=== PATIENT | male | born 1945 | race Caucasian/White ===

== ENCOUNTER 2021-06-23 18:29 | Emergency (ER) | payer OTHER ==
[~2021-06-23] VITALS: Ht 167.6 cm; Wt 64.4 kg
[2021-06-23 18:47] VITALS: BP_SYST 124
--- NOTE | 2021-06-23 19:00 | NUR ---
Patient triaged and placed in waiting room. VSS and patient appears in no acute distress at this time. Accompanied by daughter , awaiting available bed, and MD notified of need for MSE.
--- NOTE | 2021-06-23 19:06 | NUR ---
Report given to Dr Osborn
--- NOTE | 2021-06-23 19:15 | NUR ---
Patient in waiting room with daughter, alert, awake, oriented x 4. Patient breathing easy not in any distress. Patient denies pain at this time. Patient moves all extremities. Patient comfortably resting in the waiting room. Awaiting results of lab tests and diagnostics.
[2021-06-23 19:50] LABS: BASOPHILS # (AUTO) 0.2 K/uL (0.0-0.2); BASOPHILS % (AUTO) 3.3 % (0.0-2.0); EOSINOPHILS % (AUTO) 0.2 % (0.0-4.0); HEMATOCRIT 30.9 % (36-54); HEMOGLOBIN 10.3 g/dL (14.0-18.0); LYMPHOCYTES # (AUTO) 1.2 K/uL (1.0-5.5); LYMPHOCYTES % (AUTO) 17.5 % (20.5-51.5); MEAN CORPUSCULAR HEMOGLOBIN 28 pg (27-31); MEAN CORPUSCULAR HGB CONC 33 % (32-36); MEAN CORPUSCULAR VOLUME 85 fL (79.0-98.0); MONOCYTES # (AUTO) 1.2 K/uL (0.0-1.0); MONOCYTES % (AUTO) 17.6 % (1.7-9.3); NEUTROPHILS # (AUTO) 4.1 K/uL (1.8-7.7); NEUTROPHILS % (AUTO) 61.4 % (40.0-70.0); PLATELET COUNT (AUTO) 125 K/uL (130-430); RED BLOOD CELL COUNT(AUTO) 3.63 MIL/uL (4.2-6.2); RED CELL DISTRIBUTION WIDTH 15.9 % (9.0-15.0); WHITE BLOOD COUNT (AUTO) 6.6 K/uL (4.8-10.8)
[2021-06-23 20:03] LABS: ANION GAP 8 (5-15); CALCIUM 7.9 mg/dL (8.4-11.0); CHLORIDE 97 mmol/L (98-107); CREATININE 1.23 mg/dL (0.55-1.30); GLUCOSE 105 mg/dL (70-99); POTASSIUM 4.3 mmol/L (3.5-5.1); SODIUM SERUM 132 mmol/L (136-145); UREA NITROGEN, BLOOD 20 mg/dL (8-21)
[2021-06-23 20:16] LABS: ALANINE AMINOTRANSFERASE 38 U/L (12-78); ALBUMIN 2.5 g/dL (3.4-4.8); ASPARTATE AMINOTRANSFERASE 69 U/L (10-37); PHOSPHORUS 3.4 mg/dL (2.7-4.5); TOTAL BILIRUBIN 0.7 mg/dL (0.0-1.0)
--- NOTE | 2021-06-23 20:18 | NUR ---
ER Dr. Osborn in triage examining patient.
[2021-06-23 21:00] VITALS: BP_SYST 125
--- NOTE | 2021-06-23 21:00 | NUR ---
Patient given written and verbal discharge instructions and verbalizes understanding. ER MD discussed with patient the results and treatment provided. Patient in stable condition. No Rx given. Patient educated on pain management and to follow up with PMD. Pain Scale 0/10. Opportunity for questions provided and answered.
== END 2021-06-23 21:00 | disposition home or self-care (01) ==
LOC: SED 18:29
DX: M79.602 Pain in left arm (principal); I10 Essential (primary) hypertension; J45.909 Unspecified asthma, uncomplicated; W01.198A Fall on same level from slipping, tripping and stumbling with subsequent striking against other object, initial encounter; Y93.89 Activity, other specified; Y92.89 Other specified places as the place of occurrence of the external cause; Y99.8 Other external cause status
CPT/HCPCS: 36415; 70450-TC; 71045; 76376; 80053; 83735; 83880; 84100; 84484; 85025; 93005; 99285

== ENCOUNTER 2021-07-18 09:04 | Emergency (ER) | payer OTHER ==
[~2021-07-18] VITALS: Ht 170.2 cm; Wt 61.2 kg
[2021-07-18 09:10] VITALS: BP_SYST 115
[2021-07-18 09:44] LABS: BASOPHILS # (AUTO) 0.1 K/uL (0.0-0.2); BASOPHILS % (AUTO) 1.1 % (0.0-2.0); EOSINOPHILS % (AUTO) 0.1 % (0.0-4.0); HEMATOCRIT 26.8 % (36-54); HEMOGLOBIN 8.8 g/dL (14.0-18.0); LYMPHOCYTES # (AUTO) 1.3 K/uL (1.0-5.5); LYMPHOCYTES % (AUTO) 20.2 % (20.5-51.5); MEAN CORPUSCULAR HEMOGLOBIN 27 pg (27-31); MEAN CORPUSCULAR HGB CONC 33 % (32-36); MEAN CORPUSCULAR VOLUME 81 fL (79.0-98.0); MONOCYTES # (AUTO) 1.2 K/uL (0.0-1.0); MONOCYTES % (AUTO) 18.2 % (1.7-9.3); NEUTROPHILS # (AUTO) 3.9 K/uL (1.8-7.7); NEUTROPHILS % (AUTO) 60.4 % (40.0-70.0); PLATELET COUNT (AUTO) 101 K/uL (130-430); RED BLOOD CELL COUNT(AUTO) 3.31 MIL/uL (4.2-6.2); RED CELL DISTRIBUTION WIDTH 16.1 % (9.0-15.0); WHITE BLOOD COUNT (AUTO) 6.5 K/uL (4.8-10.8)
[2021-07-18 10:02] LABS: ANION GAP 10 (5-15); CALCIUM 8.7 mg/dL (8.4-11.0); CHLORIDE 99 mmol/L (98-107); CREATININE 1.28 mg/dL (0.55-1.30); GLUCOSE 153 mg/dL (70-99); POTASSIUM 4.2 mmol/L (3.5-5.1); SODIUM SERUM 132 mmol/L (136-145); UREA NITROGEN, BLOOD 29 mg/dL (8-21)
[2021-07-18 10:11] LABS: ALANINE AMINOTRANSFERASE 23 U/L (12-78); ALBUMIN 1.5 g/dL (3.4-4.8); ASPARTATE AMINOTRANSFERASE 84 U/L (10-37); TOTAL BILIRUBIN 0.5 mg/dL (0.0-1.0)
[2021-07-18 10:35] LABS: BILIRUBIN,URINE NEGATIVE (NEGATIVE); BLOOD, URINE NEGATIVE (NEGATIVE); CLARITY/URINE CLEAR (CLEAR); COLOR,URINE YELLOW (YELLOW); GLUCOSE,URINE NEGATIVE (NEGATIVE); KETONES,URINE TRACE (NEGATIVE); LEUKOCYTE ESTERASE ,URINE NEGATIVE (NEGATIVE); NITRITE, URINE NEGATIVE (NEGATIVE); PH,URINE 5.5 (5.0-8.0); PROTEIN URINE NEGATIVE (NEGATIVE)
[2021-07-18 11:14] VITALS: BP_SYST 114
== END 2021-07-18 11:18 | disposition home or self-care (01) ==
LOC: SED 09:04
DX: D53.9 Nutritional anemia, unspecified (principal); R53.1 Weakness; R41.0 Disorientation, unspecified; I10 Essential (primary) hypertension; J45.909 Unspecified asthma, uncomplicated
CPT/HCPCS: 36415; 70450-TC; 71045; 76376; 80053; 81003; 84484; 85025; 93005; 99285